=== PATIENT | male | born 1935 | race Caucasian/White ===

== ENCOUNTER 2024-10-09 10:11 | Emergency (ER) | payer OTHER, SELFPAY ==
[2024-10-09 10:16] VITALS: BP 111/74
--- NOTE | 2024-10-09 11:06 | ED.GENMED ---
History of Present Illness
General
Chief Complaint: Head Injury
Source: patient and spouse
Exam Limitations: none
Time Seen by Provider: 10/09/24 10:45
Nursing documentation reviewed up to this point in time: agreed with
History of Present Illness
History of Present Illness:
89-year-old male with a past medical history of hypertension, atrial fibrillation on Xarelto who presents to the emergency department with his for evaluation after a fall. Patient reports that since Saturday he has had 3 minor falls. He
describes them as mechanical falls�once he slid off the couch while trying to get up another time lost his balance while walking. The most recent fall was last night at around midnight�he says that he got up in the dark to go to the bathroom and
lost his balance and fell out of bed. He hit his head on the ground as well as his left knee. He sustained abrasion to the head/scalp as well as the nose. He sustained a bruise to the left knee. He says he has had some mild pain in the neck
mostly on the sides right greater than left since the fall. Has not had headache or nausea/vomiting. No change in his vision. No focal weakness or numbness. Although he has some bruising in the knee he has been able to weight-bear and bend the
knee with minimal pain. No pain in the upper extremities. He denies any back pain or rib pain, abdominal pain. He says that he did not pass out during any of his falls but he has been feeling mildly unsteady. Per triage nurse, upon bring him
back to the room he had a near fall when transitioning to the bed.
Past History
Past History
ED Past Medical History: Arrthythmia, CAD and HTN
ED Past Surgical History: Cardiac
Patient has exhibited threatening behavior?: No
PSI?: No
Review of Systems
Review of Systems
All Other Systems: ROS reviewed and negative except as documented in HPI and ROS
Constitutional: Reports fatigue; Denies fever
Respiratory: Denies trouble breathing
Cardiac: Denies chest pain
ABD/GI: Denies abdominal pain, nausea or vomiting
: Denies flank pain
Musculoskeletal: Reports joint pain and neck pain; Denies back pain
Skin: Reports other (Abrasions)
Neurological: Denies headache
Phy Exam
Physical Exam
Physical Exam:
General: Awake, alert, oriented x3; no acute distress
Head: Normocephalic, patient has abrasion to the frontal scalp as well as to the bridge of the nose but no lacerations noted
Eyes: Conjunctiva normal, EOMI, pupils equal round and reactive to light bilaterally
Throat: Airway intact, handling secretions, tongue atraumatic
Neck: Trachea midline, no midline cervical spine tenderness but patient does have paraspinal tenderness right greater than left in the cervical spine
Lungs: Breathing comfortably with no distress
Heart: Regular rate and rhythm, no murmurs, gallops, or rubs; no chest wall tenderness or bruising noted
Abd: Soft, non distended, nontender with no bruising
Back: No bruising or abrasions to the back or flank, no tenderness in the thoracic or lumbar spine or in the posterior ribs
Neuro: Cranial nerves intact, speech fluid without dysarthria, motor and sensory intact in all extremities
Skin: Abrasions to the scalp/nose, bruise to the left knee
Extremities: Patient has bruise with some mild localized swelling to the left knee but full range of motion in the knee with minimal pain; rest extremities appear atraumatic
Scores
Heart Failure Risk
Heart Failure Risk Score: Not Applicable
Heart Score for Chest Pain Patients
STEMI patient?: Not applicable
Withdrawal Assessment of Alcohol
Withdrawal Assessment Completed?: Not applicable
Course
Orders/Labs/Results
Orders:
Orders
10/09/24 10:22
CT Cervical Spine W/o Iv Contr Urgent
Comment:
Reason For Exam: head/neck injury
CT Head W/o Iv Contrast Urgent
Comment:
Reason For Exam: head injury
CR Knee - Left 4 Or More View* Urgent
Comment:
Reason For Exam: fall
10/09/24 10:57
Electrocardiogram (*1) Urgent
Reason for Study: Fatigue / Weakness
EKG- Treatment ONCE
10/09/24 11:06
Pt Eval And Treat Urgent
Activity Level: With Assistance
10/09/24 11:11
Tetanus/Diphth/Acelpertussis [Adacel] 0.5 ml IM .ONCE ONE
10/09/24 11:43
Complete Blood Count/With Diff Urgent
Comprehensive Metabolic Panel Urgent
Abnormal Lab Results
10/09/24
11:43
WBC 12.5 H 10^3/uL
(4.8-10.8)
RBC 4.51 L 10^6/uL
(4.70-6.10)
Absolute Neuts (auto) 9.9 H 10^3/uL
(1.4-6.5)
Absolute Lymphs (auto) 0.9 L 10^3/uL
(1.2-3.4)
Absolute Monos (auto) 1.5 H 10^3/uL
(0.1-0.6)
Neutrophils % 79.4 H %
(42.2-75.2)
Lymphocytes % 7.1 L %
(20.5-51.1)
Monocytes % 11.6 H %
(1.7-9.3)
Carbon Dioxide 32 H mmol/L
(22-30)
BUN 26 H mg/dl
(9-20)
Glucose 103 H mg/dl
(70-99)
10/09/24 11:43
10/09/24 11:43
Vital Signs
Initial and Last Documented VS:
Initial Vital Signs
Temp Pulse Resp BP Pulse Ox
36.4 C 62 18 111/74 93
10/09/24 10:16 10/09/24 10:16 10/09/24 10:16 10/09/24 10:16 10/09/24 10:16
Last Documented Vital Signs
Temp Pulse Resp BP Pulse Ox
36.4 C 62 18 111/74 93
10/09/24 10:16 10/09/24 10:16 10/09/24 10:16 10/09/24 10:16 10/09/24 11:06
MDM/Problems Addressed
Differential Diagnosis Includes:
Fall with head strike: Must rule out brain bleed (subarachnoid, subdural,etc), cervical spine injury; will check need for fracture as well although he is status post TKA
MDM/Problems Addressed:
89-year-old male presents after mechanical fall�3 falls over the past few days but most significant of which was last night. He did have head strike and is on Xarelto. He does have some mild neck pain. Also bruising to the left knee. Vitals and
exam as above. He was sent for an x-ray of the knee in triage which on my independent review shows no acute fracture. He was sent for a CT of the head and cervical spine�CT head negative for any acute posttraumatic pathology, CT cervical spine
final report is pending. There was incidental note of a small calcification in the right sylvian fissure on CT head. Will review with neurology regarding clinical significance. Given this uptake and falls we will check EKG and basic labs�he
denies syncope and this seems to be more of a balance issue, witnessed here even when getting him into bed from wheelchair. Will have PT evaluate as well.
Discussed results with neurology who reviewed CT and a very low suspicion that calcification noted in report represents arterial embolism/stroke. Patient has no stroke symptoms that would correlate with middle cerebral artery calcification�he has
no focal weakness or numbness on exam, facial droop, speech or vision issues, etc. In my judgment, low suspicion that this finding is clinically significant. Reported on CT cervical spine somewhat limited by motion artifact but no clear acute
fracture�low pretest probability for fracture with no midline tenderness and good range of motion with minimal pain�his pain is mainly in the paraspinal musculature and I suspect that he has cervical strain from fall. We are awaiting results of
rest of testing as above as well as PT assessment.
Labs reviewed: CBC shows marginal leukocytosis no clinically significant abnormalities otherwise. No anemia or thrombocytopenia. His CMP shows no clinically significant abnormalities. EKG shows sinus rhythm with no ectopy, no QT prolongation, not
acutely ischemic. Patient did very well with physical therapy was able to ambulate unassisted with no additional support needed. Nevertheless given his reported issues with balance at home I did recommend that he have a cane nearby to help with
ambulation especially given that he is on a blood thinner. I think at this point he is stable for discharge patient feels very comfortable at this plan. Provided a copy of his imaging reports to follow-up with his primary doctor. All questions
answered.
Chronic conditions affecting care:
A-fib on Xarelto
*Radiology
Radiology exam reviewed: radiology read reviewed
*Pulse Oximetry
SaO2: 93
Oxygen Mode of Delivery: Room air
Patient hypoxic: no (93%)
*Critical Care Note
Total Time (30-74mins, 75-104mins- exclusive of procedures): Not Applicable
Data Reviewed
Source: patient and spouse
Patient Management
Discussion with other providers: [employer] (Discussed with neurology)
ED Attending Note
-
Portions of this chart may have been created with voice recognition software.� Occasional wrong word or��sound alike� substitutions may have occurred due to the inherent limitations of voice recognition software.
Discharge Plan
Departure
Patient with high blood pressure during this ER visit?: No
Discharge Problem:
Contusion of knee, Neck strain, Abrasion of scalp
Instructions: Contusion (DC), Minor Head Injury (DC), Abrasions - ED discharge instructions, Whiplash
Prescriptions:
No Action
oxycodone-acetaminophen [Percocet] 5-325 mg tablet
0.5 tab PO Q6HPRN PRN (Reason: pain) Qty: 10 0RF
oxycodone-acetaminophen [Percocet] 5-325 mg tablet
1 tab PO Q6HPRN PRN (Reason: pain) Qty: 10 0RF
Rx Instructions:
Take 1/2 tab by mouth every 6 hours as needed for pain
Referrals:
Jonathan Ngo MD [[facility], Internal Medicine] - Follow up in 5-7 days
Activity Restrictions/Additional Instructions:
Thank you for visiting the Emergency Department at [facility].
1. Please schedule a follow up appointment as directed. Call first thing tomorrow morning to make an appointment.
2. If indicated, please take your medications as instructed and indicated on discharge paperwork.
3. If any of your symptoms do not improve, or persist, or become more severe within 6-12 hours, please return to the emergency department for further care.
4. Please return to the emergency department if you develop a headache, neck pain/stiffness, fever greater than 100.4F, chest pain, shortness of breath, persistent nausea, vomiting, slurred speech, difficulty walking, numbness/tingling, weakness,
signs of infection or any other symptoms that are worrisome to you.
Please call [phone] if you have any questions.
Interventions
Interventions:
*Risk Screen - Suicide Last Done: 10/09/24 10:16
*General Assessment Last Done: 10/09/24 10:16
*ED- Fall Risk Assessment Last Done: 10/09/24 10:16
ED- Neurological Assessment Last Done: 10/09/24 10:52
ED-Skin Assessment Last Done: 10/09/24 10:52
Discharge Date and Time
Print Language: ANGOLAN
[2024-10-09] MEDS: ADACEL 0.5 ML IM (11:45)
[2024-10-09 12:02] LABS: Hematocrit 40.4 % (39.0-52.0); Hemoglobin 13.4 g/dL (13.0-18.0); Mean Corp Hgb Conc. 33.2 g/dL (33.0-37.0); Mean Corpuscular Volume 89.6 fL (80.0-94.0); Nucleated Red Blood Cells % 0 % (-); Platelet Count 149 10^3/uL (130-400); Red Cell Dist. Width 12.8 % (11.5-14.5)
[2024-10-09 12:18] VITALS: BP 158/77; PULSE 64; O2SAT 90
[2024-10-09 12:32] LABS: ALT (SGPT) 45 U/L (0-50); AST (SGOT) 33 U/L (17-59); Albumin 4.3 g/dl (3.5-5.0); Alkaline Phosphatase 97 U/L (38-126); Blood Urea Nitrogen 26 mg/dl (9-20); Calcium 8.6 mg/dl (8.4-10.2); Carbon Dioxide 32 mmol/L (22-30); Chloride 104 mmol/L (98-107); Glucose 103 mg/dl (70-99); Potassium 3.7 mmol/L (3.5-5.1); Sodium 142 mmol/L (135-145); Total Protein 6.9 g/dl (6.3-8.2); eGFR > 60.00
[2024-10-09 13:24] VITALS: BP 130/74
== END 2024-10-09 13:58 | disposition home or self-care (01) ==
LOC: EMR 10:11
PROVIDERS: EMERGENCY PHYSICIAN Emergency Medicine; FAMILY PHYSICIAN Internal Medicine
DX: S80.02XA Contusion of left knee, initial encounter (principal); S16.1XXA Strain of muscle, fascia and tendon at neck level, initial encounter; S00.01XA Abrasion of scalp, initial encounter; W06.XXXA Fall from bed, initial encounter; I25.10 Atherosclerotic heart disease of native coronary artery without angina pectoris; I10 Essential (primary) hypertension; I48.91 Unspecified atrial fibrillation; Z79.01 Long term (current) use of anticoagulants; Z23 Encounter for immunization
CPT/HCPCS: 90471; 99285; 70450; 72125; 73564; 80053; 85025; 90715; 93005